=== PATIENT | female | born 1985 | race African-American/Black ===

== ENCOUNTER 2017-05-25 09:56 | Emergency (ER) | payer BC, MEDICAID, OTHER ==
--- NOTE | 2017-05-25 10:09 | EDM.PDOC ---
ED HPI GENERAL MEDICAL PROBLEM - General Chief Complaint: Laceration Stated Complaint: DELIVERED BABY 3 DAYS AGO AND NEEDS SUTURES Time Seen by Provider: 05/25/17 10:08 - History of Present Illness INITIAL COMMENTS - FREE TEXT/NARRATIVE: 31-year-old female presents emergency room after home delivery with a midwife practitioner requesting laceration repair. Patient delivered on is now Saturday. She has a laceration from spontaneous vaginal delivery done at home. Apparently the delivery was uncomplicated initially they did not think she needed sutures but last night she was informed she might need sutures with the midwife practitioner checked her again. The patient is having minimal bleeding from it and is otherwise doing well his not having any fevers or chills. - Related Data Allergies Allergy/AdvReac Type Severity Reaction Status Date / Time No Known Allergies Allergy Verified 05/25/17 10:10 Home Meds: Home Meds [id number]/Ferrous Fumarate/FA [ Tablet] 1 tab PO DAILY 05/25/17 [History] ED ROS GENERAL - Review of Systems Review Of Systems: See Below Constitutional: Reports: No Symptoms. Denies: Fever, Chills Respiratory: Reports: No Symptoms Cardiovascular: Reports: No Symptoms GI/Abdominal: Reports: No Symptoms : Reports: No Symptoms ED EXAM, SKIN/RASH Exam: See Below Exam Limited By: No Limitations General Appearance: Alert, No Apparent Distress Respiratory/Chest: No Respiratory Distress, Lungs Clear, Normal Breath Sounds Cardiovascular: Regular Rate, Rhythm, No Edema, No Murmur GI/Abdominal: Normal Bowel Sounds, Soft, Non-Tender, Other (Fundal height increased normal firm) (Female) Exam: Vaginal Tears (She has an posterior vaginal tear at the introitus grade 1 perhaps a little more. No significant bleeding) Back Exam: Normal Inspection. No: CVA Tenderness (L), CVA Tenderness (R) Course - Vital Signs Last Recorded V/S: Last Vital Signs Temp 36.2 C 05/25/17 10:07 Pulse 89 05/25/17 10:07 Resp 16 05/25/17 10:07 BP 121/84 05/25/17 10:07 Pulse Ox 99 05/25/17 10:07 - Re-Assessments/Exams Free Text/Narrative Re-Assessment/Exam: 05/25/17 10:[address] Joseph who would be reluctant to repair that at this point. The patient will follow-up in the [facility] clinic this next week for reevaluation Departure - Departure Time of Disposition: 10:41 Disposition: Home, Self-Care 01 Clinical Impression: Obstetric vaginal laceration - Discharge Information Referrals: Adri Moy MD [Primary Care Provider] - Willie Joseph MD [Physician] - Forms: ED Department Discharge Additional Instructions: Return to the emergency room with any questions problems or worsening symptoms. Follow-up with Dr. Joseph, or in the women's clinic, this next week
[2017-05-25 10:11] VITALS: BP 121/84
== END 2017-05-25 10:47 | disposition home or self-care (01) ==
LOC: JD.ED 09:56
DX: O71.4 Obstetric high vaginal laceration alone (principal)
CPT/HCPCS: 99283

== ENCOUNTER 2023-11-17 09:59 | Emergency (ER) | payer BC, MEDICAID ==
[2023-11-17 10:36] LABS: APPEARANCE,URINE CLEAR (Clear); BILIRUBIN,URINE NEGATIVE (Negative); COLOR,URINE YELLOW (Yellow); GLUCOSE,URINE NEGATIVE (Negative); KETONES,URINE NEGATIVE (Negative); LEUKOCYTE ESTERASE,URINE 1+ (Negative); NITRITE,URINE NEGATIVE (Negative); OCCULT BLOOD,URINE 1+ (Negative); PROTEIN,URINE NEGATIVE (Negative); UROBILINOGEN,URINE 0.2 (0.2-1.0)
[2023-11-17 10:52] LABS: BACTERIA,URINE RARE /hpf (FEW); MUCUS,URINE NOT SEEN /hpf (FEW); RBC,URINE 0-5 /hpf (0-5); WBC,URINE 0-5 /hpf (0-5)
[2023-11-17 10:54] VITALS: BP 88/62; PULSE 76
== END 2023-11-17 11:16 | disposition home or self-care (01) ==
LOC: JD.ED 09:59
DX: N39.0 Urinary tract infection, site not specified (principal); Z79.899 Other long term (current) drug therapy
CPT/HCPCS: 81001; 87086; 87088; 87186; 99283